=== PATIENT | female | born 1960 | race Caucasian/White ===

== ENCOUNTER → 2024-08-09 10:25 | Outpatient (BNVA) | payer OTHER, SELFPAY | PROVIDERS: PCP Internal Medicine; Visit Provider Physician Assistant Surgical ==

== ENCOUNTER 2024-10-28 08:37 | Outpatient (AMB) | payer OTHER, SELFPAY ==
--- NOTE | 2024-10-28 10:37 | A.OFFVIS_ITS ---
VS Expanded 10/28/24 11:49 Height 5 ft 5 in Weight 251 lb 6 oz BMI 41.8 Body Fat % 48 Body Fat Mass 120.8 Fat Free Mass 130.8 Visceral Fat Rating 16 Body Water % 36.8 Body Water Mass 92.6 Basal Metabolic Rate/Score 1,845 Intake Visit Reasons: [employer] FELLOW [facility]* Allergies acetaminophen (From Percocet) Allergy (Severe, Verified 10/28/24 10:37) Nausea and Vomiting oxycodone (From Percocet) Allergy (Severe, Verified 08/09/24 10:45) Nausea and Vomiting Medication List - Last Reconciled 10/28/24 by Anil Coronado MD amlodipine 5 mg PO DAILY aspirin 81 mg PO DAILY atorvastatin 80 mg PO DAILY cyanocobalamin (vitamin B-12) 100 mcg IM QMONTH hydrochlorothiazide 25 mg PO DAILY omeprazole 40 mg PO DAILY HPI HPI [employer]LLOW [facility]*: Details: Start time: 10.300am, End time: 11.07am ?I spent 32 minutes speaking with the patient on the phone plus an additional 5 minutes reviewing and updating records for a total of 37 minutes HPI Comments Details: Previous weight loss efforts: Dr. Camacho, RD, [facility], Zepbound for 2mths (lost 22lbs) Wakes up: 8am, Sleeps: 11pm Breakfast: 10am (muffin) Lunch: skips Dinner: 6pm (steak, beans, potatoes) Snacks: 12pm (chips) Exercise: Has a home Elliptical that tracks calories Beverages: Coffee: none, Tea: Lipkin 2 cups/d, Soda: Regular Coke: (16oz/d), Juice: none, ETOH: 1/mth PFSH Medical History (Updated 10/28/24 @ 10:40 by Anil Coronado MD) GERD (gastroesophageal reflux disease) DJD (degenerative joint disease) Hyperlipidemia Hypertension Sleep apnea Morbid obesity Breast cancer Borderline high blood pressure Surgical History (Updated 10/28/24 @ 10:42 by Anil Coronado MD) History of bilateral mastectomy History of hip surgery Family History (Updated 08/09/24 @ 10:52 by Tea Wharton CMA) Mother Breast cancer Father Colon cancer Social History (Updated 08/09/24 @ 10:52 by Tea Wharton CMA) Alcohol intake: current Alcohol intake frequency: holidays/special occasions only Patient Tobacco Use Status: Former Tobacco user Telehealth Telehealth Telehealth Platform: Telephone Location of provider rendering services: practice address Location of patient: address on file Patient Identification confirmed using: Name, : Yes Telehealth method: voice only Patient verbally consented to treatment: Yes Patient verbally consented to billing insurance company: Yes Patient informed of any privacy concerns related to visit: Yes Minutes spent on Phone/Video with Pt.: 37 Assessment & Plan Assessment & Plan (1) Morbid obesity: Code(s): E66.01 - Morbid (severe) obesity due to excess calories Category: Medical Plan: 1. As we discussed, based on your present BMI you are approximately 110lbs overweight. In my opinion, for any weight loss strategy to be successful should have a high probability to help you lose at least 90lbs out of 100lbs of the extra weight you carry. We discussed in detail the available therapeutic options: 1) our lifestyle intervention program that has an average weight loss of 10% in 3 months.?Some patients continue it for longer and have lost over 50lbs but this is not common. Our lifestyle program can be provided by me or by using our software roderick, the [employer] roderick. I will provide you with a link to use the roderick if you choose to do so. We use protein shakes and protein bars to replace some of the meals of the day and cover your appetite better. We will decide together the exact combination. 2) Weight loss medications: these can be used in conjunction with our lifestyle program or you may choose to use them without following a lifestyle program from my program but your own. As we discussed, your insurance requires you to do the lifestyle program for 3 months before they approve the medications. The medication I use more often is called Zepbound and is one shot per week. My office will do the authorizations and we will train you how to use it properly. We also discussed that you can self pay for the first 3 months and the cost is $249 for the first month and $499 for any other month thereafter. These payments go to the drug company directly and not to us. 3) We also discussed about the lap sleeve gastrectomy. In my opinion this is the best option to solve your problem based on your situation and should be used in conjunction with the two previous options. A good strategy to make this decision to proceed with surgery, is to set some goals with the lifestyle intervention and medication options: If you don't lose at least 10lbs the first 6 weeks after starting the program or at least 10% in 3 months. ?I emphasized the importance of close follow-up, adherence to instructions and good communication. The surgery does not replace the need to change your lifestlyle which is the cause of the obesity problem. The surgery provides the motivation to try again to change your lifestyle, it reduces the appetite and make the transition to a better lifestyle easier and doubles the amount of weight you would lose compared to doing the lifestyle change without the surgery. You will need to be on a liquid diet with protein shakes for 2 weeks before surgery to maximize weight loss and boost your nutritional status to recover better from surgery and also for the first two weeks after surgery to let the stomach heal before we introduce other foods. After the first 2 weeks we will introduce protein bars and soft foods like scrambled eggs, cottage cheese and yogurt and after the 6th week will introduce meat, fish and cooked vegetables in small amounts. Over time you should be able to eat everything in small amounts. Side effects like nausea, vomiting, heartburn or abdominal pain are not common in the practice unless you are not following in the practice. This operation requires lifetime commitment to following in our practice and communication with me. You will much less weight and experience side effects if you don?t communicate or not following in the practice. Complications are rare and in our practice is about 1/10 of the national average. This is one of the best practices in the country with regards to safety record and weight loss results and it is in my opinion the best choice for your situation.
[2024-10-28 11:49] VITALS: BMI 41.8
== END 2024-10-28 11:56 | disposition home or self-care (01) ==
LOC: HO.HBS 08:37
PROVIDERS: PCP Internal Medicine; Visit Provider Surgery
DX: E66.01 Morbid (severe) obesity due to excess calories (principal)
CPT/HCPCS: 99203

== ENCOUNTER → 2024-10-28 08:37 | Outpatient (BNVA) | payer OTHER, SELFPAY | PROVIDERS: PCP Internal Medicine; Visit Provider Surgery | DX: E66.01 Morbid (severe) obesity due to excess calories (principal); Z68.41 Body mass index [BMI] 40.0-44.9, adult; Z79.85 Long-term (current) use of injectable non-insulin antidiabetic drugs; Z79.82 Long term (current) use of aspirin; Z87.891 Personal history of nicotine dependence; Z85.3 Personal history of malignant neoplasm of breast; Z08 Encounter for follow-up examination after completed treatment for malignant neoplasm; Z13.89 Encounter for screening for other disorder ==